=== PATIENT | female | born 1985 | race Two or more races ===

== ENCOUNTER 2017-12-26 04:15 | Inpatient (IN) | payer OTHER ==
[2017-12-26] MEDS ORDERED: DEXTROSE 5%-LACTATED RINGERS 1,000 ML IV SCH (04:55)
[2017-12-26] MEDS ORDERED: AMPICILLIN - 2 GM in SODIUM CHLORIDE 100 ML IVPB ONE (05:00)
[2017-12-26] MEDS ORDERED: AMPICILLIN SODIUM 2 GM VIAL ONE (05:02)
[2017-12-26 05:50] LABS: BASO % 0.4 % (0-2.0); EOS % 1.2 % (0-4.5); HEMATOCRIT 40.9 % (32.4-45.2); HEMOGLOBIN 14.2 GM/dL (10.7-15.3); LYMPH % 25.2 % (8-40); MCHC 34.6 g/dl (32.0-36.0); MEAN CELL VOLUME 89.4 fl (80-96); MEAN PLT VOLUME 10.9 fl (7.5-11.1); MONO % 5.4 % (3.8-10.2); NEUT % 67.8 % (42.8-82.8); PLATELET COUNT 166 K/MM3 (134-434); RBC 4.58 M/mm3 (3.60-5.2); RDW 14.2 % (11.6-15.6); WHITE BLOOD COUNT 9.7 K/mm3 (4.0-10.0)
[2017-12-26 06:04] LABS: INR 1.05 (0.82-1.09); PROTHROMBIN TIME (PATIENT) 11.9 SEC (9.98-11.88)
[2017-12-26 06:06] VITALS: BMI 32.2
[2017-12-26 06:06] LABS: ACTIVATED PTT 28.2 SECONDS (26.9-34.4)
[2017-12-26 06:10] LABS: ANION GAP 10 (8-16); BLOOD UREA NITROGEN 12 mg/dL (7-18); CALCIUM 8.6 mg/dL (8.5-10.1); CHLORIDE 108 mmol/L (98-107); CO2 20 mmol/L (21-32); CREATININE 0.7 mg/dL (0.55-1.02); GLUCOSE,RANDOM 90 mg/dL (74-106); SODIUM 138 mmol/L (136-145)
[2017-12-26] MEDS ORDERED: OXYTOCIN 30 UNITS in 0.9% NS 30 UNIT/500 ML INFUS.BAG IVPB ONE (07:28)
--- NOTE | 2017-12-26 07:37 | HP ---
Past Medical History - Primary Care Physician PCP:: José Luis Decker - Admission Chief Complaint: 32yo P1 @ 38wks c/o LOF 3:30 am, +ctx, no VB, +FM. desiring epidural for pain managment History of Present Illness: 1.GBS positive - for antibiotic prophylaxis in labor 2. GCT 135 - no GTT History Source: Patient, Medical Record Limitations to Obtaining History: No Limitations - Past Medical History ...: 2 ...Para: 1 (5.5lb) ...Term: 1 ...: 0 ...Spon : 0 ...Induced : 0 ...Multiple Gestation: 0 ...LMP: 04/11/17 ... Weeks Gestation by Dates: 38.0 ...EDC by Dates: 01/16/18 - Past Surgical History Past Surgical History: Yes: None Hx Myomectomy: No Hx Transabdominal Cerclage: No - Smoking History Smoking history: Never smoked Have you smoked in the past 12 months: No - Alcohol/Substance Use Hx Alcohol Use: No History of Substance Use: reports: None - Social History History of Recent Travel: No Home Medications - Allergies Allergies/Adverse Reactions: Allergies Allergy/AdvReac Type Severity Reaction Status Date / Time No Known Allergies Allergy Verified 12/26/17 05:05 - Home Medications Home Medications: Ambulatory Orders Vit/Iron Fum/Folic AC [ Tablet] 1 tab PO DAILY 04/18/16 Review of Systems - Review of Systems Constitutional: reports: No Symptoms Eyes: reports: No Symptoms HENT: reports: No Symptoms Neck: reports: No Symptoms Cardiovascular: reports: No Symptoms Respiratory: reports: No Symptoms Gastrointestinal: reports: No Symptoms Genitourinary: reports: No Symptoms Breasts: reports: No Symptoms Reported Musculoskeletal: reports: No Symptoms Integumentary: reports: No Symptoms Neurological: reports: No Symptoms Endocrine: reports: No Symptoms Hematology/Lymphatic: reports: No Symptoms Psychiatric: reports: No Symptoms Physical Exam - Maternity Vital Signs: Vital Signs Temperature 98.1 F 12/26/17 06:00 Pulse Rate 84 12/26/17 06:00 Respiratory Rate 20 12/26/17 06:00 Blood Pressure 121/78 12/26/17 06:00 O2 Sat by Pulse Oximetry (%) Constitutional: Yes: Well Nourished Eyes: Yes: WNL HENT: Yes: WNL, Atraumatic, Normocephalic Neck: Yes: WNL, Supple, Trachea Midline Cardiovascular: Yes: WNL, Regular Rate and Rhythm Lungs: Clear to auscultation Breast(s): Yes: WNL - Abdominal Exam/OB Fundal Height: 38 (6.6lb - EFW) Number of Fetuses: Single Presentation: Vertex Contractions: Yes Regularity: Regular Intensity: Mild/Mod Monitor Mode: External Heart Rate (range): 140's, + accels, no decels Heart Rate Location: Midline Category: I Accelerations: None Decelerations: None - Vaginal Exam/OB Vaginal Bleediing: No Speculum Exam: No Dilatation (cm): 2 Amniotic Membrane Status: Ruptured Nitrazine Test: Positive Amniotic Fluid: Yes: Clear Presentation: Vertex/Position Station: -3 - Physical Exam Musculoskeletal: Yes: WNL Extremities: Yes: WNL Edema: No Integumentary: Yes: WNL Deep Tendon Reflex Grade: Normal +2 ...Motor Strength: WNL Psychiatric: Yes: WNL, Alert, Oriented - Labs Lab Results: CBC, BMP 12/26/17 05:30 12/26/17 05:30 Assessment/Plan 32yo P1 @ 38wks with PROM in early labor Admit to L&D, IVF, labs s/p Stadol/Phenergan for pain management, desiring further pain management with Epidural Ampicillin for GBS prophylaxis Start Pitocin to improve contraction frequency monitor progress of labor
[2017-12-26] MEDS ORDERED: FENTANYL/BUPIVACAINE/NS/PF - PCEA - 50 ML DISP.SYRIN EP ONE (08:37)
[2017-12-26] MEDS ORDERED: ELECTROLYTE-148 SOLN 1,000 ML IV ONE (08:45)
[2017-12-26] MEDS ORDERED: BUPIVACAINE HCL/PF 0.25% (2.5MG/ML) 10 ML VIAL ONE (08:55)
[2017-12-26] MEDS ORDERED: AMPICILLIN SODIUM 1 GM VIAL ONE (09:12)
[2017-12-26] MEDS ORDERED: NALOXONE HCL 0.4 MG/ML VIAL IVPUSH PRN (09:14)
[2017-12-26] MEDS ORDERED: FENTANYL/BUPIVACAINE/NS/PF - PCEA - 50 ML DISP.SYRIN EP SCH (09:15)
[2017-12-26] MEDS: AMPICILLIN - 1 GM in SODIUM CHLORIDE 100 ML IVPB SCH ×2 (09:15→13:12)
[2017-12-26] MEDS ORDERED: ELECTROLYTE-148 SOLN 1,000 ML IV SCH (09:45)
[2017-12-26] MEDS ORDERED: OXYTOCIN 20 UNITS in 0.9% NS 20 UNIT/1,000 ML INFUS.BAG IV ONE ×2 (10:09→15:04)
[2017-12-26] MEDS ORDERED: LIDOCAINE HCL 1% PRESERVATIVE FREE - 30ML VIAL ONE (10:09)
[2017-12-26] MEDS ORDERED: WITCH HAZEL 50% (TUCKS) 40 PAD/JAR PAD TP PRN (10:35)
[2017-12-26] MEDS ORDERED: BENZOCAINE 28 GM HEMORRHOIDAL OINTMENT TP PRN (10:35)
[2017-12-26] MEDS ORDERED: BENZOCAINE 20% 57 GM BOTTLE TP PRN (10:35)
[2017-12-26] MEDS ORDERED: METHYLERGONOVINE MALEATE 0.2 MG/1 ML AMP IM PRN (10:35)
[2017-12-26] MEDS ORDERED: BISACODYL 10 MG SUPP.RECT RC PRN (10:35)
--- NOTE | 2017-12-26 10:35 | PN ---
Delivery - Delivery Vaginal Delivery: No Problems Type of Anesthesia: Epidural, General (sedation) Episiotomy/Laceration: Midline, 1st degree EBL (cc): 200 Delivery, Single - Stages of Labor Date 1st Stage Initiatied: 12/26/17 Time 1st Stage Initiated: 02:00 Date 2nd Stage Initiated: 12/26/17 Time 2nd Stage Initiated: 10:05 Date of Delivery: 12/26/17 Time of Delivery: 10:18 Date Placenta Delivered: 12/26/17 Time Placenta Delivered: 10:20 Placenta: Yes: Spontaneous - Condition of Infant Salesforce Administrator/Network Engineering Advisor Present: No Gender: Male Position: Left, OA - 1 Minute Total Score: 9 5 Minutes Total Score: 9 - Feeding Plan Initial Plan: Elected not to breastfeed exclusively throughout hospitalization Remarks - Remarks Remarks: Uncomplicated delivery
[2017-12-26] MEDS ORDERED: D5W-LR W/ 20 UNITS OXYTOCIN 1,000 ML IV SCH (10:45)
[2017-12-26] MEDS ORDERED: OXYTOCIN IVPB SCH (12:30)
[2017-12-26] MEDS ORDERED: NS IVPB SCH (12:30)
[2017-12-26] MEDS ORDERED: OXYTOCIN 30 UNITS in 0.9% NS 30 UNIT/500 ML INFUS.BAG IVPB SCH (12:45)
[2017-12-26] MEDS ORDERED: OXYTOCIN 20 UNITS in 0.9% NS 20 UNIT/1,000 ML INFUS.BAG IV SCH (16:00)
[2017-12-26] MEDS: ACETAMINOPHEN 325 MG TABLET (FP) PO PRN (21:02)
[2017-12-26] MEDS: IBUPROFEN 600 MG TABLET (FP) PO PRN (21:03)
[2017-12-26] MEDS: FERROUS SO4 325 MG TABLET (FP) PO SCH (21:04)
--- NOTE | 2017-12-27 07:29 | PN ---
Post Progress Note - Subjective Subjective: No complains Post Day: 1 Type of Delivery: Vital Signs: Vital Signs Temperature 97.6 F 12/27/17 05:00 Pulse Rate 92 H 12/27/17 05:00 Respiratory Rate 20 12/27/17 05:00 Blood Pressure 134/97 12/27/17 05:00 O2 Sat by Pulse Oximetry (%) 100 12/26/17 10:15 Breast Exam: Yes: Soft Uterus: Yes: Fundus Firm Abdomen/GI: Yes: Abdomen soft Lochia: Yes: Rubra Lochia, amount: Small Extremities: Yes: Calves non-tender Perineum: Yes: Laceration Activity: Ambulating - Labs Labs: CBC WBC 9.7 K/mm3 (4.0-10.0) 12/26/17 05:30 RBC 4.58 M/mm3 (3.60-5.2) 12/26/17 05:30 Hgb 14.2 GM/dL (10.7-15.3) D 12/26/17 05:30 Hct 40.9 % (32.4-45.2) 12/26/17 05:30 MCV 89.4 fl (80-96) 12/26/17 05:30 MCH 31.0 pg (25.7-33.7) 12/26/17 05:30 MCHC 34.6 g/dl (32.0-36.0) 12/26/17 05:30 RDW 14.2 % (11.6-15.6) 12/26/17 05:30 Plt Count 166 K/MM3 (134-434) 12/26/17 05:30 MPV 10.9 fl (7.5-11.1) D 12/26/17 05:30 Neutrophils % 67.8 % (42.8-82.8) 12/26/17 05:30 Lymphocytes % 25.2 % (8-40) 12/26/17 05:30 Monocytes % 5.4 % (3.8-10.2) 12/26/17 05:30 Eosinophils % 1.2 % (0-4.5) 12/26/17 05:30 Basophils % 0.4 % (0-2.0) 12/26/17 05:30 Assessment/Plan 32yo P2 s/p doing well, afebrile Pain well controlled Plan d/c 12/28/17 Instructed NPV for 6weeks RTO in 4-6wks
[2017-12-27 07:55] LABS: BASO % 0.4 % (0-2.0); EOS % 1.3 % (0-4.5); HEMATOCRIT 38.5 % (32.4-45.2); HEMOGLOBIN 13.2 GM/dL (10.7-15.3); LYMPH % 23.9 % (8-40); MCH 30.8 pg (25.7-33.7); MCHC 34.2 g/dl (32.0-36.0); MEAN CELL VOLUME 89.9 fl (80-96); MEAN PLT VOLUME 10.2 fl (7.5-11.1); MONO % 4.1 % (3.8-10.2); NEUT % 70.3 % (42.8-82.8); PLATELET COUNT 137 K/MM3 (134-434); RBC 4.29 M/mm3 (3.60-5.2); RDW 14.6 % (11.6-15.6); WHITE BLOOD COUNT 11.3 K/mm3 (4.0-10.0)
--- NOTE | 2017-12-27 09:36 | DS ---
Physical Exam-ELECTRICAL EQUIPMENT ASSEMBLER Vital Signs: Vital Signs Temperature 98.3 F 12/27/17 09:00 Pulse Rate 72 12/27/17 09:00 Respiratory Rate 20 12/27/17 09:00 Blood Pressure 131/84 12/27/17 09:00 O2 Sat by Pulse Oximetry (%) 100 12/26/17 10:15 Constitutional: Yes: Well Nourished Eyes: Yes: WNL HENT: Yes: WNL, Atraumatic, Normocephalic Neck: Yes: WNL, Supple, Trachea Midline Cardiovascular: Yes: WNL, Regular Rate and Rhythm Respiratory: Yes: WNL, Regular, CTA Bilaterally Gastrointestinal: Yes: WNL, Normal Bowel Sounds, Soft ...Rectal Exam: Yes: WNL Renal/: Yes: WNL Pelvis: Yes: WNL External Genitalia: Yes: Normal ....Post : Yes: Uterus firm, Uterus non-tender Breast(s): Yes: WNL Musculoskeletal: Yes: WNL Extremities: Yes: WNL Edema: No Integumentary: Yes: WNL Neurological: Yes: WNL, Alert, Oriented ...Motor Strength: WNL Psychiatric: Yes: WNL, Alert, Oriented Labs: CBC, BMP 12/27/17 06:00 12/26/17 05:30 Delivery - Delivery Vaginal Delivery: No Problems Type of Anesthesia: Epidural, General (sedation) Episiotomy/Laceration: Midline, 1st degree EBL (cc): 200 Delivery, Single - Stages of Labor Date 1st Stage Initiatied: 12/26/17 Time 1st Stage Initiated: 02:00 Date 2nd Stage Initiated: 12/26/17 Time 2nd Stage Initiated: 10:05 Date of Delivery: 12/26/17 Time of Delivery: 10:18 Time Placenta Delivered: 10:20 Placenta: Yes: Spontaneous - Condition of Human Resources Benefits Assistant/Radio Electrician Present: No Infant Gender: Male Weight: 5 lb 6 oz Position: Left, OA Total Hours ROM (Hrs/Mins): 6Hrs/12Mins - 1 Minute Total Score: 9 5 Minutes Total Score: 9 - Feeding Plan Initial Plan: Elected not to breastfeed exclusively throughout hospitalization Discharge Summary Reason For Visit: LABOR ADMIT Procedures: Principal: Normal spontaneous vaginal delivery Hospital Course: Unremarkable Condition: Good - Instructions Diet, Activity, Other Instructions: Physical activity Resume your normal everyday activity as tolerated no heavy lifting or exercise until seen by your surgeon. You may walk unlimited regi of and climb stairs. You may resume driving the car when you feel safe and comfortable behind the wheel. No sexual activity as instructed. Wound care If you have a bandage, leave it on, and keep dry for 48-72 hours. After that time discard the outer bandage. If they are tapes on the skin under the out of bandage leave them in place. They will peel off in the next 7 to 10 days. Do Not Peel them off. You may shower the day after surgery. If there are tapes present on the skin, you may shower over them. Diet There are no dietary restrictions. Eat healthy, high-fiber foods. Drink 6 to 8 glasses of liquid each day. This will assist in keeping your bowels are regular. Pain management You may take Tylenol or acetaminophen or Ibuprofen (for example, Motrin, Advil etc.) from my pain prescription medication is ordered should be taken as prescribed for moderate to severe pain. Call MD for any of the following: Severe pain not relieved by medication Fever of 101 or higher Excessive bleeding or drainage on dressing Inability to urinate Disposition: HOME - Home Medications Comprehensive Discharge Medication List: Ambulatory Orders Vit/Iron Fum/Folic AC [ Tablet] 1 tab PO DAILY 04/18/16
[2017-12-27] MEDS: PRENATAL VITAMINS W/ FOLIC ACID TABLET (FP) PO SCH (10:14)
[2017-12-27] MEDS: FERROUS SO4 325 MG TABLET (FP) PO SCH ×2 (10:14→21:45)
[2017-12-27] MEDS: IBUPROFEN 600 MG TABLET (FP) PO PRN ×4 (11:34→23:51)
[2017-12-27] MEDS: ACETAMINOPHEN 325 MG TABLET (FP) PO PRN ×4 (11:35→23:52)
[2017-12-27] MEDS ORDERED: SENNOSIDES/DOCUSATE COMBO (SENNA PLUS) TABLET (UD) PO PRN (22:00)
[2017-12-28] MEDS: ACETAMINOPHEN 325 MG TABLET (FP) PO PRN ×2 (06:24→12:01)
[2017-12-28] MEDS: IBUPROFEN 600 MG TABLET (FP) PO PRN ×2 (06:24→12:02)
[2017-12-28 08:08] VITALS: BP 120/75; PULSE 64; TEMP 98.3
--- NOTE | 2017-12-28 09:01 | PN ---
Progress Note (short form) - Note Progress Note: ppd 2 doing well, no c/o CBC, BMP 12/27/17 06:00 12/26/17 05:30 Last Vital Signs Temp Pulse Resp BP Pulse Ox 98.3 F 64 18 120/75 100 12/28/17 08:07 12/28/17 08:07 12/28/17 08:07 12/28/17 08:07 12/26/17 10:15 abdomen soft, non tender , no cva uterus firm, non tender lochia mild no calf tenderness plan d/c home , rto 4 weeks
[2017-12-28] MEDS: FERROUS SO4 325 MG TABLET (FP) PO SCH (09:54)
[2017-12-28] MEDS: PRENATAL VITAMINS W/ FOLIC ACID TABLET (FP) PO SCH (09:54)
== END 2017-12-28 13:00 | disposition home or self-care (01) | DRG 775 ==
LOC: JDEL 04:15 → JLDR 04:55 → J3W 12:49
PROVIDERS: ADMIT Obstetrics & Gynecology; ATTEND Obstetrics & Gynecology
PROC: 10E0XZZ Delivery of Products of Conception, External Approach (ICD-10-PCS; principal; 2017-12-26)
PROC: 0HQ9XZZ Repair Perineum Skin, External Approach (ICD-10-PCS; 2017-12-26)
DX: O99.824 Streptococcus B carrier state complicating childbirth (principal); O70.0 First degree perineal laceration during delivery; Z3A.38 38 weeks gestation of pregnancy; Z37.0 Single live birth
CPT/HCPCS: 36415; 59409; 80048; 85025; 85610; 85730; 86593; 86850; 86900; 86901; 87389